=== PATIENT | female | born 1955 | race Caucasian/White ===

== ENCOUNTER 2019-11-08 06:54 | Day surgery (SDC) | payer BC, MEDICARE ==
[2019-10-31 14:42] LABS: BASOPHILS % (AUTO) 0.6 % (0-1); EOSINOPHILS # (AUTO) 0.1 X10'3 (0-0.9); EOSINOPHILS % (AUTO) 2.6 % (0-6); LYMPHOCYTES # (AUTO) 1.8 X10'3 (1.1-4.8); LYMPHOCYTES % (AUTO) 33.3 % (21-51); MEAN CORPUSCULAR HEMOGLOBIN 31.6 PG (27.0-31.0); MEAN CORPUSCULAR HGB CONC 33.2 g/dL (33.0-36.5); MEAN CORPUSCULAR VOLUME 95.3 FL (78-98); MEAN PLATELET VOLUME 7.2 FL (7.4-10.4); MONOCYTES # (AUTO) 0.5 X10'3 (0-0.9); NEUTROPHILS # (AUTO) 2.9 X10'3 (1.8-7.7); NEUTROPHILS % (AUTO) 54.5 % (42-75); PRE OP HEMATOCRIT 40.6 % (35.0-45.0); PRE OP HEMOGLOBIN 13.5 g/dL (12.0-16.0); PRE OP PLATELET COUNT 230 X10'3 (140-440); RED BLOOD COUNT 4.26 X10'6 (4.20-5.60); RED CELL DISTRIBUTION WIDTH 13.8 % (11.5-14.5)
[2019-10-31 14:55] LABS: ALBUMIN 3.7 G/DL (3.4-5.0); ALBUMIN/GLOBULIN RATIO 1.1 (1.1-1.5); ALKALINE PHOSPHATASE 82 IU/L (46-116); BLOOD UREA NITROGEN 10 MG/DL (7-18); BUN/CREATININE RATIO 9.3 (6.6-38.0); CALCIUM 8.7 MG/DL (8.5-10.1); CHLORIDE 109 MMOL/L (99-107); CREATININE 1.08 MG/DL (0.40-0.90); PRE OP ALT 21 U/L (30-65); PRE OP ANION GAP 6 (8-16); PRE OP AST 29 U/L (10-37); PRE OP BILIRUB, TOTAL 1.1 MG/DL (0.0-1.0); PRE OP GLUCOSE 131 MG/DL (70-104); PRE OP POTASSIUM 3.6 MMOL/L (3.4-5.1); PRE OP SODIUM 144 MMOL/L (135-145); TOTAL CARBON DIOXIDE 28.6 MMOL/L (24-32); TOTAL PROTEIN 7.1 G/DL (6.4-8.2); eGFR 51 ML/MIN
[~2019-11-08] VITALS: Ht 157.5 cm; Wt 106.8 kg
[~2019-11-08 06:54] MED LIST: ATOR10TA70 PO; BACL10TA2 PO; BUPIVAcaine/PF 2.5mg/ml (0.25%) 10ml vial ONE; CARB1TAB42 PO; CLON-371 PO; GABA-530 PO; MAGN250T11 PO; MULT-1085 PO; OMEG-107 PO; VENL150T3 PO; VIT C PO; ceFAZolin 2gm in dextrose, iso 50 ML IV ONE; famotidine 20mg tablet PO ONE; ringers solution, lacted 1,000 ML IV SCH
--- NOTE | 2019-11-08 08:35 | NUR ---
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 HER SPEECH IS EXTREMELY SLOW AND VERY SOFT SPOKEN. Addendum: 11/08/19 at 0845 by Viola Wagner RN Amended: Links added.
[2019-11-08 08:41] VITALS: BP 159/94
[2019-11-08 08:45] VITALS: BP 159/94
[2019-11-08] MEDS ORDERED: LIDOcaine 0.5% (5mg/ml) 50ml vial ONE (08:46)
[2019-11-08] MEDS ORDERED: midazolam 2 mg/2 ml injection ONE ×3 (09:07→10:28)
[2019-11-08] MEDS ORDERED: fentaNYL/PF 50MCG/1 ML 2ML syringe ONE ×2 (09:07→09:56)
[2019-11-08] MEDS ORDERED: ondansetron/PF 4mg/2ml inj ONE (10:29)
[2019-11-08] MEDS ORDERED: hydrALAZINE 20mg/ml inj. IV ONE (10:29)
[2019-11-08] MEDS ORDERED: labetalol 20mg/4ml (5mg/ml) syringe IV ONE (10:29)
[2019-11-08] MEDS ORDERED: LIDOcaine 2% (20mg/ml) 5ml vial ONE (10:30)
[2019-11-08 10:34] VITALS: BP 121/79
--- NOTE | 2019-11-08 10:34 | NUR ---
Received from OR via [facility] , accompanied by Anesthesiologist CHRYSTAL and report given by Anesthesiolgist. PATIENT WITH 20G PIV IN RIGHT UE RUNNING LR AT 100. SPLINT TO LEFT UE IS CDI. + CAP REFILL TO ALL FINGERS AND THUMB. Addendum: 11/08/19 at 1047 by Richard Burdick RN, RN Amended: Links added.
[2019-11-08 10:44] VITALS: BP 138/81
[2019-11-08] MEDS ORDERED: meperidine/PF 25mg/ml syringe IV PRN ×3 (10:50)
[2019-11-08] MEDS ORDERED: proCHLORperazine 10 MG/2 ml inj IV PRN (10:50)
[2019-11-08] MEDS ORDERED: morphine 2 MG/ML inj. syringe IV PRN (10:50)
[2019-11-08] MEDS ORDERED: ringers solution, lacted 1,000 ML IV SCH (10:50)
[2019-11-08] MEDS ORDERED: morphine 4 MG/ML inj SYRINge IV PRN (10:50)
[2019-11-08] MEDS ORDERED: ondansetron/PF 4mg/2ml inj IV PRN (10:50)
[2019-11-08] MEDS ORDERED: meperidine/PF 25mg/ml syringe ONE (10:56)
[2019-11-08 11:05] VITALS: BP 132/86
--- NOTE | 2019-11-08 11:13 | NUR ---
Report called to receiving nurse. Transferred via [facility] WITH Belongings . Special Issues communicated to receiving nurse ANNA ELKINS. Addendum: 11/08/19 at 1114 by Richard Burdick RN RN Amended: Links added.
[2019-11-08] MEDS ORDERED: HYDROcodone/acetaminophen 10/325mg tab PO ONE (11:25)
== END 2019-11-08 12:00 | disposition home or self-care (01) ==
LOC: PAS 06:54
PROVIDERS: ATTEND Orthopaedic Surgery Hand Surgery
DX: M24.542 Contracture, left hand (principal); G20 Parkinson's disease; E66.9 Obesity, unspecified; Z68.41 Body mass index [BMI] 40.0-44.9, adult; Z11.59 Encounter for screening for other viral diseases; Z79.899 Other long term (current) drug therapy; Z98.890 Other specified postprocedural states; Z87.891 Personal history of nicotine dependence; Z88.1 Allergy status to other antibiotic agents
CPT/HCPCS: 25290; 26593; 36415; 80053; 82948; 85025; 93005; J0360; J2001; J2175; J2250; J2405; J3010; J3490; U0003; A4215; A4615; J7120